=== PATIENT | female | born 1985 | race African-American/Black ===

== ENCOUNTER 2018-11-06 20:16 | Emergency (ER) | payer MEDICAID ==
[~2018-11-06] VITALS: Ht 160 cm; Wt 100.0 kg
[2018-11-06 21:19] LABS: GLUCOSE,POINT OF CARE 239 MG/DL (70-110)
[2018-11-06] MEDS ORDERED: METF-960 PO (21:22)
[2018-11-06] MEDS ORDERED: GLIP5 PO (21:22)
[2018-11-06] MEDS ORDERED: KETOROLAC TROMETHAMINE 30 MG/ML VIAL IM ONE (22:30)
[2018-11-06 22:54] LABS: GLUCOSE,POINT OF CARE 260 MG/DL (70-110)
[2018-11-06 23:25] VITALS: BP 118/74
== END 2018-11-06 23:25 | disposition home or self-care (01) ==
LOC: EMS 20:20
DX: G44.209 Tension-type headache, unspecified, not intractable (principal); E11.9 Type 2 diabetes mellitus without complications; Z79.84 Long term (current) use of oral hypoglycemic drugs
CPT/HCPCS: 82962; 96372; 99283; J1885